=== PATIENT | female | born 1970 | race Caucasian/White ===

== ENCOUNTER 2019-09-23 17:49 | Emergency (ER) | payer OTHER ==
[~2019-09-23] VITALS: Ht 162.6 cm; Wt 81.5 kg
--- NOTE | 2019-09-23 18:12 | NUR ---
PATIENT BROUGTH BACK FROM TRIAGE WITH CHIEF COMPLAINT OF INTERMITTENT DIFFICULTY SWALLOWING, RIGHT FACIAL NUMBNESS, AND FEELING WEAK. TOOK 25MG BENADRYL. Breathing regular and unlabored. Talking in full sentances. Continues to state some difficultly swallowing.
--- NOTE | 2019-09-23 18:17 | NUR ---
PT REPORT SIMILAR EPISODES WHEN REACTION TO [facility]IP[facility] 07/2018
--- NOTE | 2019-09-23 18:34 | NUR ---
SHARIF WALKER AT BEDSIDE FOR EVALUATION
--- NOTE | 2019-09-23 18:47 | NUR ---
REPORT TO YESENIA GARCIA
[2019-09-23] MEDS ORDERED: FAMOTIDINE 20 MG TABLET ONE (18:50)
--- NOTE | 2019-09-23 18:58 | NUR ---
Assumed care of pt from RADHA Freitas Pt alert and sitting up on gurney. Pt on pulse ox/HR monitor. Pt medicated per SEP. VS retaken. Call light in place.
[2019-09-23] MEDS ORDERED: FAMOTIDINE 20 MG TABLET PO ONE (19:00)
[2019-09-23 20:24] VITALS: BP 118/70
--- NOTE | 2019-09-23 20:24 | NUR ---
Pt d/c'd to home care. Pt alert, oriented and ambulatory. Pt educated on prescriptions, home care, OTC meds and follow-up. Pt VU. Pt ambulated out of ER.
== END 2019-09-23 20:25 | disposition home or self-care (01) ==
LOC: ED 20:15
DX: R06.00 Dyspnea, unspecified (principal); T78.49XA Other allergy, initial encounter; Z86.39 Personal history of other endocrine, nutritional and metabolic disease; X58.XXXA Exposure to other specified factors, initial encounter
CPT/HCPCS: 99283; Q0177; 99285

== ENCOUNTER 2019-09-25 15:36 | Emergency (ER) | payer OTHER ==
[~2019-09-25] VITALS: Ht 162.6 cm; Wt 79.0 kg
[2019-09-25] MEDS ORDERED: SODIUM CHLORIDE FLUSH 10ML SYR IVF ONE (17:00)
[2019-09-25] MEDS ORDERED: LORazepam 2 MG/ML, 1ML IVPush PRN (17:00)
[2019-09-25] MEDS ORDERED: LORazepam 2 MG/ML, 1ML ONE (17:13)
[2019-09-25] MEDS ORDERED: LEVO175T2 PO (17:22)
[2019-09-25 17:23] LABS: BASOPHILS # (AUTO) 0.05 x10^3/uL (0-0.1); BASOPHILS % (AUTO) 1 % (0-1); EOSINOPHILS # (AUTO) 0.13 x10^3/uL (0-0.4); EOSINOPHILS % (AUTO) 2 % (1-7); LYMPHOCYTES # (AUTO) 2.05 x10^3/uL (1-3.4); LYMPHOCYTES % (AUTO) 25 % (22-44); MD NO; MEAN CORPUSCULAR HEMOGLOBIN 30.5 pg (27.0-34.8); MEAN CORPUSCULAR HGB CONC 33.8 g/dL (32.4-35.8); MEAN CORPUSCULAR VOLUME 90.2 fL (80-100); MEAN PLATELET VOLUME 7.7 fL (7.4-10.4); MONOCYTES # (AUTO) 0.45 x10^3/uL (0.2-0.8); MONOCYTES % (AUTO) 6 % (2-9); NEUTROPHILS # (AUTO) 5.51 x10^3/uL (1.8-6.8); NEUTROPHILS % (AUTO) 67 % (42-75); PLATELET COUNT 336 x10^3/uL (130-400); RED BLOOD COUNT 4.91 x10^6/uL (3.82-5.3); RED CELL DISTRIBUTION WIDTH 13.2 % (9.6-15.2)
[2019-09-25] MEDS ORDERED: TESTOSTERONE TD (17:24)
[2019-09-25] MEDS ORDERED: UBID100C24 PO (17:24)
[2019-09-25 17:31] LABS: ALBUMIN 4.4 g/dL (3.4-5.0); ANION GAP 6 mmol/L (5-15); CALCIUM 8.8 mg/dL (8.5-10.1); CHLORIDE 110 mmol/L (98-107); CREATININE 0.83 mg/dL (0.55-1.02)
--- NOTE | 2019-09-25 17:52 | NUR ---
REPORT FROM BREAK RN. PIV EST, MEDS PER SEP. PLAN FOR MRI. PT AWARE AND AGREES.
--- NOTE | 2019-09-25 18:43 | NUR ---
PT AT MRI.
[2019-09-25] MEDS ORDERED: GADOTERATE 7.5 MMOL/15 ML SYR ONE (19:06)
[2019-09-25 19:35] VITALS: BP 113/75
--- NOTE | 2019-09-25 19:36 | NUR ---
MRI CLEAR. RECHECK.
== END 2019-09-25 20:22 | disposition home or self-care (01) ==
LOC: ED 16:18
DX: R20.2 Paresthesia of skin (principal); R94.31 Abnormal electrocardiogram [ECG] [EKG]; Z86.39 Personal history of other endocrine, nutritional and metabolic disease
CPT/HCPCS: 36415; 70553; 80048; 82040; 85025; 93005; 96374; 99285; A9575; J2060